=== PATIENT | male | born 1975 | race Caucasian/White ===

== ENCOUNTER 2022-05-06 15:12 | Inpatient (IN) | payer OTHER ==
[~2022-05-06] VITALS: Ht 162.6 cm; Wt 84.1 kg
[2022-05-06 17:39] LABS: BASOPHILS % (AUTO) 0.4 % (0.0-2.0); EOSINOPHILS % (AUTO) 0.2 % (1.0-6.0); HEMATOCRIT 43.3 % (41-53); HEMOGLOBIN 15.1 g/dL (13.5-17.5); LYMPHOCYTES # (AUTO) 0.7 K/uL (1.0-4.8); MEAN CORPUSCULAR HEMOGLOBIN 28.1 pg (26.0-34.0); MEAN CORPUSCULAR HGB CONC 34.8 G/dL (31.0-37.0); MEAN CORPUSCULAR VOLUME 81 fL (80-100); MONOCYTES # (AUTO) 0.4 K/uL (0.1-1.0); MONOCYTES % (AUTO) 4.8 % (2.0-9.0); NEUTROPHILS # (AUTO) 7.9 K/uL (1.8-7.7); PLATELET COUNT (AUTO) 167 K/uL (150-450); RED BLOOD CELL COUNT(AUTO) 5.38 MIL/uL (4.50-5.90); RED CELL DISTRIBUTION WIDTH 13.9 % (11.5-14.5)
[2022-05-06 17:40] LABS: NEUTROPHILS % (AUTO) 86.6 % (40.0-70.0)
[2022-05-06 17:47] LABS: ANION GAP 8 mmol/L (8-16); CALCIUM, TOTAL 9.1 mg/dL (8.8-10.5); CARBON DIOXIDE 29 mmol/L (22-29); CHLORIDE 101 mmol/L (98-107); CREATININE 0.74 mg/dL (0.60-1.30); GLUCOSE,RANDOM 199 mg/dL (70-110); POTASSIUM 3.5 mmol/L (3.5-5.1); SODIUM SERUM 138 mmol/L (136-145); UREA NITROGEN, BLOOD 7 mg/dL (7-18)
[2022-05-06 17:48] LABS: GLOMERULAR FILTR. RATE CALC > 60 mL/min (>60)
[2022-05-06 17:51] LABS: ALANINE AMINOTRANSFERASE 27 U/L (12-78); ALBUMIN 4.4 g/dL (3.4-5.0); ALKALINE PHOSPHATASE 71 U/L (46-116); ASPARTATE AMINOTRANSFERASE 20 U/L (15-37); BILIRUBIN,TOTAL 0.5 mg/dL (0.1-1.0); TOTAL PROTEIN, SERUM 8.5 g/dL (6.4-8.2)
[2022-05-06] MEDS ORDERED: ASPIRIN 325 MG TABLET PO ONE (18:15)
[2022-05-06 18:49] LABS: COVID AG,FIA SOURCE NASOPHARYNGEAL
[2022-05-06] MEDS ORDERED: ONDANSETRON HCL 4 MG/2 ML VIAL IVP PRN (19:15)
[2022-05-06] MEDS: HEPARIN SODIUM,PORCINE 5,000 UNITS/ML VIAL SQ SCH (23:16)
[2022-05-07] MEDS ORDERED: DEXTROSE 50%-WATER 25 GM/50 ML SYRINGE IVP PRN (06:00)
[2022-05-07] MEDS: HEPARIN SODIUM,PORCINE 5,000 UNITS/ML VIAL SQ SCH ×2 (07:52→15:09)
[2022-05-07] MEDS: ASPIRIN 81 MG CHEWABLE TABLET PO SCH (07:54)
[2022-05-07 10:12] VITALS: BP 127/87
[2022-05-07] MEDS: ACETAMINOPHEN 325 MG TABLET PO PRN ×2 (10:21→21:50)
[2022-05-07 11:34] VITALS: BP 126/79
[2022-05-07] MEDS: INSULIN LISPRO 100 UNITS/ML SQ PRN ×2 (12:06→22:01)
[2022-05-07 14:59] VITALS: BP 142/77
[2022-05-07] MEDS: MAGNESIUM HYDROXIDE SUSPENSION 30 ML UDCUP PO PRN (15:09)
[2022-05-07 20:07] VITALS: BP 123/67
[2022-05-07 20:41] LABS: GLUCOMETER DEV NAME(LOC) 5N.3; GLUCOSE,POINT OF CARE 189 MG/DL (70-110)
[2022-05-07] MEDS: METOPROLOL TARTRATE 25 MG TABLET PO SCH (21:50)
[2022-05-07] MEDS: SERTRALINE HCL 100 MG TABLET PO SCH (21:51)
[2022-05-07 23:16] LABS: GLUCOMETER DEV NAME(LOC) 5S.1B; GLUCOSE,POINT OF CARE 149 MG/DL (70-110)
[2022-05-08] VITALS (8 sets, daily range): BP systolic 130–151; BP diastolic 66–82
[2022-05-08] MEDS: HEPARIN SODIUM,PORCINE 5,000 UNITS/ML VIAL SQ SCH ×3 (00:21→16:24)
[2022-05-08 05:51] LABS: HEMOGLOBIN A1C 6.5 % (3.8-5.6)
[2022-05-08 06:12] LABS: ANION GAP 6 mmol/L (8-16); CARBON DIOXIDE 29 mmol/L (22-29); CHLORIDE 102 mmol/L (98-107); CHOL/HDL RATIO 3.7 (4.2-7.3); CHOLESTEROL 126 mg/dL (131-200); CREATININE 0.73 mg/dL (0.60-1.30); GLUCOSE,RANDOM 135 mg/dL (70-110); HDL CHOLESTEROL 34 mg/dL (40-60); LDL CHOL (CALC.) 70 mg/dL (0-130); POTASSIUM 3.4 mmol/L (3.5-5.1); SODIUM SERUM 137 mmol/L (136-145); TRIGLYCERIDES 109 mg/dL (15-150); UREA NITROGEN, BLOOD 9 mg/dL (7-18)
[2022-05-08 06:38] LABS: GLOMERULAR FILTR. RATE CALC > 60 mL/min (>60)
[2022-05-08] MEDS ORDERED: POTASSIUM CHL 10 MEQ/WATER 50 ML IV PRN (07:00)
[2022-05-08] MEDS ORDERED: POTASSIUM CHLORIDE 20 MEQ ER TABLET PO PRN (07:00)
[2022-05-08] MEDS ORDERED: REGADENOSON 0.4 MG/5 ML PF SYRINGE IVP ONE (08:15)
[2022-05-08] MEDS ORDERED: SESTAMIBI TC99M/UD ISOTOPE 1 EA INJ INJ ONE ×2 (09:35→12:20)
[2022-05-08 10:10] LABS: GLUCOMETER DEV NAME(LOC) 5N.1C; GLUCOSE,POINT OF CARE 127 MG/DL (70-110)
[2022-05-08] MEDS: ASPIRIN 81 MG CHEWABLE TABLET PO SCH (11:24)
[2022-05-08] MEDS: METOPROLOL TARTRATE 25 MG TABLET PO SCH ×2 (11:24→20:30)
[2022-05-08] MEDS: ATORVASTATIN CALCIUM 20 MG TABLET PO SCH (11:24)
[2022-05-08] MEDS: INSULIN LISPRO 100 UNITS/ML SQ PRN ×2 (13:29→18:22)
[2022-05-08] MEDS: ACETAMINOPHEN 325 MG TABLET PO PRN ×2 (13:32→20:37)
[2022-05-08 18:41] LABS: GLUCOMETER DEV NAME(LOC) 5S.2B; GLUCOSE,POINT OF CARE 152 MG/DL (70-110)
[2022-05-08] MEDS: SERTRALINE HCL 100 MG TABLET PO SCH (20:31)
[2022-05-08] MEDS: MAGNESIUM HYDROXIDE SUSPENSION 30 ML UDCUP PO PRN (20:37)
[2022-05-08 20:51] LABS: GLUCOMETER DEV NAME(LOC) 5S.1B; GLUCOSE,POINT OF CARE 127 MG/DL (70-110)
[2022-05-08 20:56] LABS: GLUCOMETER DEV NAME(LOC) 5S.1B; GLUCOSE,POINT OF CARE 123 MG/DL (70-110)
[2022-05-08 22:22] LABS: GLUCOMETER DEV NAME(LOC) 5N.1C; GLUCOSE,POINT OF CARE 184 MG/DL (70-110)
[2022-05-09 00:03] VITALS: BP 125/71
[2022-05-09] MEDS: HEPARIN SODIUM,PORCINE 5,000 UNITS/ML VIAL SQ SCH ×2 (00:36→08:42)
[2022-05-09] MEDS: ACETAMINOPHEN 325 MG TABLET PO PRN (02:48)
[2022-05-09 05:14] VITALS: BP 136/82
[2022-05-09 06:46] LABS: GLUCOMETER DEV NAME(LOC) 5N.1C; GLUCOSE,POINT OF CARE 126 MG/DL (70-110)
[2022-05-09 08:06] VITALS: BP 149/89
[2022-05-09] MEDS: ASPIRIN 81 MG CHEWABLE TABLET PO SCH (08:42)
[2022-05-09] MEDS: METOPROLOL TARTRATE 25 MG TABLET PO SCH (08:42)
[2022-05-09] MEDS: ATORVASTATIN CALCIUM 20 MG TABLET PO SCH (08:42)
[2022-05-09] MEDS ORDERED: METF-1211 PO ×2 (10:16→10:18)
[2022-05-09 11:20] VITALS: BP 159/90
[2022-05-10 00:11] LABS: GLUCOMETER DEV NAME(LOC) 5N.3; GLUCOSE,POINT OF CARE 125 MG/DL (70-110)
== END 2022-05-09 13:45 | disposition home or self-care (01) | DRG 311 ==
LOC: EMS 15:12 → 5S 05-07 06:43
PROVIDERS: ADMIT Internal Medicine; ATTEND Internal Medicine
DX: I20.0 Unstable angina (principal); E11.9 Type 2 diabetes mellitus without complications; I10 Essential (primary) hypertension; Z20.822 Contact with and (suspected) exposure to COVID-19; F32.A Depression, unspecified; E66.9 Obesity, unspecified; E87.6 Hypokalemia; Z79.899 Other long term (current) drug therapy; Z68.31 Body mass index [BMI] 31.0-31.9, adult; Z79.4 Long term (current) use of insulin
CPT/HCPCS: 71045; 78452; 80048; 80053; 80061; 82962; 83036; 84132; 84484; 85025; 87081; 93005; 93306; 99285; A9500; J1644; J2405; 36415-L1; 36415-TC